=== PATIENT | male | born 1950 | race Caucasian/White ===

== ENCOUNTER → 2017-03-04 | Outpatient (REF) | payer MEDICARE ==
[~2017-03-04] MED LIST: /TAMS4CA; ABIL10TA; ABIL2TAB; ADDE10CA3; BENI20TA11; LAMI25TA; LEVO100T; LEVO25TA2; LEXA5TAB13; LEXAPRO; LIPI10TA; TRIC145T19
== END ==
LOC: M LAB REF 13:40
PROVIDERS: ATTEND Internal Medicine
DX: Z20.828 Contact with and (suspected) exposure to other viral communicable diseases (principal)

== ENCOUNTER → 2018-03-31 | Outpatient (REF) | payer MEDICARE ==
[2018-03-31 13:59] LABS: DRVV SCREEN 35.1 SEC
[2018-03-31 14:06] LABS: ERYTHROCYTE SEDIMENTATION RATE 3 mm/hr (0-20)
[2018-03-31 14:07] LABS: PTT LUPUS TYPE ANTICOAG SCREEN 0.8 (0-1.2)
[2018-03-31 14:18] LABS: ESTIMATED AVERAGE GLUCOSE 108 MG/DL (60-110); HEMOGLOBIN A1c 5.4 %
[2018-03-31 14:19] LABS: FREE T4 1.11 NG/DL (0.76-1.46); RHEUMATOID FACTOR QUANT < 10.0 IU/ML (<15.0); TOTAL PROTEIN 6.9 GM/DL (6.4-8.2)
[2018-04-01 11:23] LABS: ALBUMIN 4.28 GM/DL (3.29-5.55); ALPHA-1-GLOBULIN % 4.2 % (2.9-4.9); ALPHA-1-GLOBULINS 0.29 GM/DL (0.17-0.41); ALPHA-2-GLOBULINS 0.75 GM/DL (0.42-0.99); ALPHA-2-GLOBULINS % 10.8 % (7.1-11.8); BETA-1-GLOBULINS 0.44 GM/DL (0.28-0.60); BETA-1-GLOBULINS % 6.4 % (4.7-7.2); BETA-2-GLOBULINS 0.33 GM/DL (0.19-0.55); BETA-2-GLOBULINS % 4.8 % (3.2-6.5); GAMMA GLOBULIN % 11.8 % (11.1-18.8); GAMMA GLOBULINS 0.81 GM/DL (0.65-1.58)
== END ==
LOC: M LABNEURO 11:22
DX: G62.9 Polyneuropathy, unspecified (principal); G20 Parkinson's disease
CPT/HCPCS: 84165

== ENCOUNTER → 2019-01-20 | Outpatient (REF) | payer MEDICARE | LOC: M LAB REF 16:52 | PROVIDERS: ATTEND Physician Assistant | DX: J02.9 Acute pharyngitis, unspecified (principal) ==

== ENCOUNTER → 2019-06-17 | Outpatient (REF) | payer MEDICARE ==
[~2019-06-17] MED LIST changes: -/TAMS4CA; +FLOM0.4C39; +LEXA1TAB; -LEXAPRO
== END ==
LOC: M LAB REF 16:54
PROVIDERS: ATTEND Internal Medicine
DX: D64.9 Anemia, unspecified (principal)

== ENCOUNTER → 2021-09-13 | Outpatient (CLI) | payer MEDICARE ==
--- NOTE | 2021-09-13 13:57 | REP ---
INDICATION: CONTUSION. COMPARISON: None TECHNIQUE: AP and frog-lateral views FINDINGS: The hip joint space is symmetric and well maintained. There is no acute fracture, dislocation, or subluxation. The femoral head is spherical in shape. There is no evidence of buttressing. IMPRESSION: Within normal limits <Electronically signed by Massimo Melo > 09/13/21 [id number]
== END ==
LOC: M WUC 11:14
PROVIDERS: ATTEND Physician Assistant
DX: S70.02XA Contusion of left hip, initial encounter (principal); X58.XXXA Exposure to other specified factors, initial encounter; Y92.9 Unspecified place or not applicable; Y93.9 Activity, unspecified; Y99.9 Unspecified external cause status

== ENCOUNTER 2021-10-11 11:10 | Emergency (ER) | payer MEDICARE ==
[~2021-10-11] VITALS: Ht 180.3 cm; Wt 96.9 kg
[2021-10-11 11:11] VITALS: BP 153/83
--- OUTSIDE RECORDS SUMMARY | 2021-10-11 11:21 | CCD | Continuity of Care Document ---
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 Phone [place] V[facility] [phone] Problems Description No Information Available Social History Type Date Description Comments Sex Unknown ETOH Use Occasionally consumes alcohol Tobacco Use Start: Unknown Patient has never smoked Smoking Status Reviewed: 07/04/20 Patient has never smoked Allergies and adverse reactions Active Allergies Criticality Reaction | Severity Comments Date Shrimp Unable to assess criticality redness, swelling, anaphy laxis late 07/10/2012 Medications Active Medications SIG Qnty Indications Ordering Provide r Date Lipitor Unknown Tricor Unknown Levothyroxine Sodium Unknown Flomax Unknown Adderall Unknown Abilify Unknown Wellbutrin Unknown Ropinirole HCL 0.25mg Tablets Unknown Aripiprazole 5mg Tablets Take One Half Tablet By Mouth AT Bedtime Unknown Amphetamine-Dextroamphet ER 30mg Caps ER 24HR Take Two Capsules By Mouth Every Day Maximum Daily Dose 2 Caps ules Unknown Omeprazole Unknown Memantine HCL Unknown Trihexyphenidyl HCL Unknown Immunizations Description No Information Available Vital Signs Date Vital Result Comment 09/12/2021 5:17pm BP Systolic 149 mmHg BP Diastolic 83 mmHg Heart Rate 84 /min Respiratory Rate 15 /min O2 % BldC Oximetry 97 % Body Temperature 97.1 F Weight 187.00 lb Height 71 inches 5'11" BMI (Body Mass Index) 26.1 kg/m2 Pain Level 4 07/04/2020 10:31am BP Systolic 116 mmHg BP Diastolic 78 mmHg Heart Rate 88 /min O2 % BldC Oximetry 97 % Body Temperature 98.0 F Weight 195.00 lb Height 71 inches 5'11" BMI (Body Mass Index) 27.2 kg/m2 Pain Level 2 Results Description No Information Available Procedures Date Code Description Status 09/12/2021 14553 Office/Outpatient Established Lo w MDM 20-29 Min Completed Medical Devices Description No Information Available Encounters Type Date Location Provider Dx Diagnosis Office Visit 09/12/2021 12:10p Main Office EMILY Ernandez S70 .02xA Contusion of left hip, initial encounter Assessments Date Code Description Provider 09/12/2021 S70.02xA Contusion of left hip, initial e ncounter EMILY Ernandez Plan of Treatment No Information Available Functional Status Description No Information Available Mental Status Description No Information Available Referrals Description No Information Available
--- OUTSIDE RECORDS SUMMARY | 2021-10-11 11:21 | CCD ---
Author Author [facility] Organization [facility] Address Unknown Phone Unavailable Care Team Providers Care Plate Stacker Name Role Phone Rick Bolden Unavailable Unavailable Yuan, Azra ENCINAS Unavailable Unavailable Yuan, Azra ENCINAS Unavailable Unavailable Yuan, Azra ENCNIAS Unavailable Unavailable YuanRick Unavailable Unavailable Yuan, Azra ENCINAS Unavailable Unavailable Yuan, Azra ENCINAS Unavailable Unavailable Yuan, Azra ENCINAS Unavailable Unavailable Yuan, Azra ENCINAS Unavailable Unavailable Yuan, Azra ENCINAS Unavailable Unavailable YuanRick Unavailable Unavailable YuanRick Unavailable Unavailable YuanRick Unavailable Unavailable YuanRick Unavailable Unavailable YuanRick Unavailable Unavailable YuanRick Unavailable Unavailable YuanRick Unavailable Unavailable YuanRick Unavailable Unavailable YuanRick Unavailable Unavailable YuanRick Unavailable Unavailable YuanRick Unavailable Unavailable YuanRick Unavailable Unavailable Yuan, Azra ENCINAS Unavailable Unavailable Yuan, Azra MD Unavailable Unavailable Yuan, Azra MD Unavailable Unavailable Yuan, Azra MD Unavailable Unavailable Yuan, Azra MD Unavailable Unavailable Yuan, Azra MD Unavailable Unavailable Yuan, Azra ENCINAS Unavailable Unavailable Yuan, Azra ENCINAS Unavailable Unavailable Yuan, Azra ENCINAS Unavailable Unavailable Yuan, Azra ENCINAS Unavailable Unavailable Yuan, Azra ENCINAS Unavailable Unavailable Yuan, Azra MD Unavailable Unavailable Yuan, Azra MD Unavailable Unavailable Yuan, Azra MD Unavailable Unavailable Yuan, Azra MD Unavailable Unavailable Yuan, Azra MD Unavailable Unavailable Yuan, Azra MD Unavailable Unavailable Yuan, Azra MD Unavailable Unavailable Yuan, Azra MD Unavailable Unavailable Yuan, Azra MD Unavailable Unavailable Yuan, Azra MD Unavailable Unavailable Yuan, Azra MD Unavailable Unavailable Yuan, Azra MD Unavailable Unavailable Yuan, Azar MD Unavailable Unavailable Yuan, Azra MD Unavailable Unavailable Yuan, Azra MD Unavailable Unavailable Yuan, Azra MD Unavailable Unavailable Yuan, Azra MD Unavailable Unavailable Yuan, Azra MD Unavailable Unavailable Yuan, Azra MD Unavailable Unavailable Yuan, Azra MD Unavailable Unavailable Yuan, Azra MD Unavailable Unavailable Yuan, Azra MD Unavailable Unavailable Yuan, Azra MD Unavailable Unavailable Yuan, Azra MD Unavailable Unavailable Yuan, Azra MD Unavailable Unavailable Yuan, Azra MD Unavailable Unavailable Yuan, Azra MD Unavailable Unavailable Yuan, Azra MD Unavailable Unavailable Yuan, Azra MD Unavailable Unavailable LETTIERE, A NEENA PA Unavailable Unavailable LETTIERE, A NEENA PA Unavailable Unavailable LETTIERE, A NEENA PA Unavailable Unavailable LETTIERE, A NEENA PA Unavailable Unavailable LETTIERE, A NEENA PA Unavailable Unavailable LETTIERE, A NEENA PA Unavailable Unavailable LETTIERE, A NEENA PA Unavailable Unavailable LETTIERE, A NEENA PA Unavailable Unavailable LETTIERE, A NEENA PA Unavailable Unavailable LETTIERE, A NEENA PA Unavailable Unavailable LETTIERE, A NEENA PA Unavailable Unavailable LETTIERE, A NEENA PA Unavailable Unavailable LETTIERE, A NEENA PA Unavailable Unavailable LETTIERE, A NEENA PA Unavailable Unavailable LETTIERE, A NEENA PA Unavailable Unavailable LETTIERE, A NEENA PA Unavailable Unavailable LETTIERE, A NEENA PA Unavailable Unavailable LETTIERE, A NEENA PA Unavailable Unavailable LETTIERE, A NEENA PA Unavailable Unavailable LETTIERE, A NEENA PA Unavailable Unavailable LETTIERE, A NEENA PA Unavailable Unavailable LETTIERE, A NEENA PA Unavailable Unavailable LETTIERE, A NEENA PA Unavailable Unavailable LETTIERE, A NEENA PA Unavailable Unavailable LETTIERE, A NEENA PA Unavailable Unavailable LETTIERE, A NEENA PA Unavailable Unavailable LETTIERE, A NEENA PA Unavailable Unavailable LETTIERE, A NEENA PA Unavailable Unavailable LETTIERE, A NEENA PA Unavailable Unavailable LETTIERE, A NEENA PA Unavailable Unavailable LETTIERE, A NEENA PA Unavailable Unavailable Azeem, Katie DO Unavailable Unavailable Azeem, Katie DO Unavailable Unavailable Azeem, Katie DO Unavailable Unavailable Azeem, Katie DO Unavailable Unavailable Azeem, Katie DO Unavailable Unavailable Azeem, Katie DO Unavailable Unavailable Azeem, Katie DO Unavailable Unavailable Azeem, Katie DO Unavailable Unavailable Azeem, Katie DO Unavailable Unavailable Azeem, Katie DO Unavailable Unavailable Azeem, Katie DO Unavailable Unavailable Azeem, Katie DO Unavailable Unavailable Azeem, Katie DO Unavailable Unavailable Azeem, Katie DO Unavailable Unavailable Azeem, Katie DO Unavailable Unavailable Azeem, Katie DO Unavailable Unavailable Azeem, Katie DO Unavailable Unavailable Azeem, Katie DO Unavailable Unavailable Azeem, Katie DO Unavailable Unavailable Azeem, Katie DO Unavailable Unavailable Azeem, Katie DO Unavailable Unavailable Azeem, Katie DO Unavailable Unavailable Azeem, Katie DO Unavailable Unavailable Azeem, Katie DO Unavailable Unavailable Azeem, Katie DO Unavailable Unavailable Azeem, Katie DO Unavailable Unavailable Azeem, Katie DO Unavailable Unavailable Azeem, Katie DO Unavailable Unavailable Azeem, Katie DO Unavailable Unavailable Azeem, Katie DO Unavailable Unavailable Azeem, Katie DO Unavailable Unavailable Azeem, Katie DO Unavailable Unavailable Azeem, Katie DO Unavailable Unavailable Azeem, Katie DO Unavailable Unavailable Azeem, Katie DO Unavailable Unavailable Azeme, Katie DO Unavailable Unavailable Azeem, Katie DO Unavailable Unavailable Azeem, Katie DO Unavailable Unavailable Azeem, Katie DO Unavailable Unavailable Azeem, Kaite DO Unavailable Unavailable Azeem, Katie DO Unavailable Unavailable Azeem, Katie DO Unavailable Unavailable Azeem, Katie DO Unavailable Unavailable Azeem, Katie DO Unavailable Unavailable Azeem, Katie DO Unavailable Unavailable Azeem, Katie DO Unavailable Unavailable Azeem, Katie DO Unavailable Unavailable Azeem, Katie DO Unavailable Unavailable Azeem, Katie DO Unavailable Unavailable Azeem, Katie DO Unavailable Unavailable Azeem, Katie DO Unavailable Unavailable Azeem, Katie DO Unavailable Unavailable Azeem, Katie DO Unavailable Unavailable Azeem, Katie DO Unavailable Unavailable Azeem, Katie DO Unavailable Unavailable Azeem, Katie DO Unavailable Unavailable Azeem, Katie DO Unavailable Unavailable Azeem, Katie DO Unavailable Unavailable Azeem, Katie DO Unavailable Unavailable Azeem, Katie DO Unavailable Unavailable Azeem, Katie DO Unavailable Unavailable Azeem, Katie DO Unavailable Unavailable Azeem, Katie DO Unavailable Unavailable Azeem, Katie DO Unavailable Unavailable Azeem, Katie DO Unavailable Unavailable Azeem, Katie DO Unavailable Unavailable Azeem, Katie DO Unavailable Unavailable Azeem, Katie DO Unavailable Unavailable Azeem, Katie DO Unavailable Unavailable Azeem, Katie DO Unavailable Unavailable Azeem, Katie DO Unavailable Unavailable Azeem, Katie DO Unavailable Unavailable Azeem, Katie DO Unavailable Unavailable Azeem, Katie DO Unavailable Unavailable Re-disclosure Warning The records that you are about to access may contain information from federally-assisted alcohol or drug abuse programs. If such information is present, then the following federally mandated warning applies: This information has been disclosed to you from records protected by federal confidentiality rules (42 CFR part 2). The federal rules prohibit you from making any further disclosure of this information unless further disclosure is expressly permitted by the written consent of the person to whom it pertains or as otherwise permitted by 42 CFR part 2. A general authorization for the release of medical or other information is NOT sufficient for this purpose. The Federal rules restrict any use of the information to criminally investigate or prosecute any alcohol or drug abuse patient.The records that you are about to access may contain highly sensitive health information, the redisclosure of which is protected by Article 27-F of the [facility] Public Health law. If you continue you may have access to information: Regarding HIV / AIDS; Provided by facilities licensed or operated by the [facility] Office of Mental Health; or Provided by the [facility] Office for People With Developmental Disabilities. If such information is present, then the following [facility] mandated warning applies: This information has been disclosed to you from confidential records which are protected by state law. State law prohibits you from making any further disclosure of this information without the specific written consent of the person to whom it pertains, or as otherwise permitted by law. Any unauthorized further disclosure in violation of state law may result in a fine or senior care sentence or both. A general authorization for the release of medical or other information is NOT sufficient authorization for further disc losure. Family History Family Member Name Family Member Gender Family Member Status Date o f Status Description Data Source(s) Unknown Unknown Problem [facility] ([facility]) Encounters Encounter Providers Location Date Indications Data Source(s ) Outpatient Attender: NEENA solis 09/12/2021 12:10:00 PM EDT [facility] ([facility]) Outpatient [address] [address] 06/21/2021 12:00:00 AM EDT eCW1 ([facility]) Outpatient Attender: aKtie Parekh 10/24 07:00:00 AM EST [facility] ([facility] ) Outpatient Attender: Azra Bolden MD Main office - [place] 09/04/2020 10:15:00 AM EDT [facility] ([facility]) Immunizations Vaccine Date Status Description Data Source(s) COVID-19 VACC, MRNA(PFIZER)/PF 08/21/2021 12:00:00 AM EDT completed [facility] COVID-19 VACCINE Pfizer 08/21/2021 12:00:00 AM EDT completed [facility] Vaccine Series Complete: YESThis Data wa s Submitted to [facility] Via [employer]. COVID-19 VACCINE Pfizer 02/14/2021 12:00:00 AM EDT completed [facility] Vaccine Series Complete: YESThis Data wa s Submitted to [facility] Via [employer]. COVID-19 VACCINE Pfizer 01/24/2021 12:00:00 AM EST completed [facility] Vaccine Series Complete: NOThis Data was Submitted to [facility] Via [employer]. INFLUENZA VACCINE QUADRIVALENT 2019- (65 YR UP)/MF59 C.1/PF 08/25/2020 12:00:00 AM EDT completed [facility] Medications Medication Brand Name Start Date Product Form Dose Route Admi nistrative Instructions Pharmacy Instructions Status Indications Reaction Description Data Source(s) 50 mg 09/28/2021 12:00:00 AM EDT tablet 90 TAKE ONE TABLET BY MOUTH EVERY DAY TAKE ONE TABLET BY MOUTH EVERY DAY SOLD: 10/02/2021 [facility] 240 mcg/0.7 mL 09/07/2021 12:00:00 AM EDT syringe 0 DIRECTED DIRECTED SOLD: 09/07/2021 [facility] atorvastatin 20 MG Oral Tablet ATORVASTATIN CALCIUM 08/27/2021 1 2:00:00 AM EDT tablet 30 TAKE ONE TABLET BY MOUTH EVERY D AY TAKE ONE TABLET BY MOUTH EVERY DAY SOLD: 08/30/2021 [facility] atorvastatin 20 MG Oral Tablet ATORVASTATIN CALCIUM 08/27/2021 1 2:00:00 AM EDT tablet 30 TAKE ONE TABLET BY MOUTH EVERY D AY TAKE ONE TABLET BY MOUTH EVERY DAY SOLD: 10/02/2021 [facility] 24 HR Bupropion Hydrochloride 300 MG Extended Release Oral T ablet BUPROPION HCL 08/03/2021 12:00:00 AM EDT tablet extended release 24 hr 30 TAKE ONE TABLET BY MOUTH EVERY MORNING TAKE ONE TABLET BY MOUTH EVERY MORNING SOLD: 09/05/2021 [facility] 24 HR Amphetamine aspartate 7.5 MG / Amp hetamine Sulfate 7.5 MG / Dextroamphetamine saccharate 7.5 MG / Dextroamphetamine Sulfate 7.5 MG Extended Release Oral Capsule 30 mg DEXTROAMPHETAMINE/AMPHETAMINE 08/03/2021 12:00:00 AM EDT capsule,extended release 24hr 30 TA KE TWO CAPSULES BY MOUTH EVERY DAY DIRECTED MAXIMUM DAILY DOSE = 2 CAPSULES TAKE TWO CAPSULES BY MOUTH EVERY DAY DIRECTED MAXIMUM DAILY DOSE = 2 CAPSULES SOLD: 08/03/2021 [facility] Escitalopram 10 MG Oral Tablet ESCITALOPRAM OXALATE 08/03/2021 1 2:00:00 AM EDT tablet 30 TAKE ONE TABLET BY MOUTH EVERY D AY TAKE ONE TABLET BY MOUTH EVERY DAY SOLD: 09/17/2021 [facility] 5 mg 08/03/2021 12:00:00 AM EDT tablet 15 TAKE ONE-HALF TABLET BY MOUTH AT BEDTIME TAKE ONE-HALF TABLET BY MOUTH AT BEDTIME SOLD: 08/03/2021 [facility] 24 HR Bupropion Hydrochloride 300 MG Extended Release Oral T ablet BUPROPION HCL 08/03/2021 12:00:00 AM EDT tablet extended release 24 hr 30 TAKE ONE TABLET BY MOUTH EVERY MORNING TAKE ONE TABLET BY MOUTH EVERY MORNING SOLD: 08/03/2021 [facility] Escitalopram 10 MG Oral Tablet ESCITALOPRAM OXALATE 08/03/2021 1 2:00:00 AM EDT tablet 30 TAKE ONE TABLET BY MOUTH EVERY D AY TAKE ONE TABLET BY MOUTH EVERY DAY SOLD: 08/03/2021 [facility] 5 mg 08/03/2021 12:00:00 AM EDT tablet 15 TAKE ONE-HALF TABLET BY MOUTH AT BEDTIME TAKE ONE-HALF TABLET BY MOUTH AT BEDTIME SOLD: 09/05/2021 [facility] 150 mcg 07/28/2021 12:00:00 AM EDT tablet 30 TAKE ONE TABLET BY MOUTH EVERY DAY TAKE ONE TABLET BY MOUTH EVERY DAY SOLD: 10/02/2021 [facility] 150 mcg 07/28/2021 12:00:00 AM EDT tablet 30 TAKE ONE TABLET BY MOUTH EVERY DAY TAKE ONE TABLET BY MOUTH EVERY DAY SOLD: 08/30/2021 [facility] 150 mcg 07/28/2021 12:00:00 AM EDT tablet 30 TAKE ONE TABLET BY MOUTH EVERY DAY TAKE ONE TABLET BY MOUTH EVERY DAY SOLD: 07/31/2021 [facility] 28 mg 06/30/2021 12:00:00 AM EDT capsule,sprinkle,ER 24h r 30 TAKE ONE CAPSULE BY MOUTH EVERY DAY TAKE ONE CAPSULE BY MOUTH EVERY DAY SOLD: 07/31/2021 [facility] 28 mg 06/30/2021 12:00:00 AM EDT capsule,sprinkle,ER 24h r 30 TAKE ONE CAPSULE BY MOUTH EVERY DAY TAKE ONE CAPSULE BY MOUTH EVERY DAY SOLD: 07/02/2021 [facility] 28 mg 06/30/2021 12:00:00 AM EDT capsule,sprinkle,ER 24h r 30 TAKE ONE CAPSULE BY MOUTH EVERY DAY TAKE ONE CAPSULE BY MOUTH EVERY DAY SOLD: 10/02/2021 [facility] 28 mg 06/30/2021 12:00:00 AM EDT capsule,sprinkle,ER 24h r 30 TAKE ONE CAPSULE BY MOUTH EVERY DAY TAKE ONE CAPSULE BY MOUTH EVERY DAY SOLD: 08/30/2021 [facility] 0.4 mg 06/23/2021 12:00:00 AM EDT capsule 30 TAKE ONE CAPSULE BY MOUTH EVERY DAY TAKE ONE CAPSULE BY MOUTH EVERY DAY SOLD: 08/30/2021 [facility] 0.4 mg 06/23/2021 12:00:00 AM EDT capsule 30 TAKE ONE CAPSULE BY MOUTH EVERY DAY TAKE ONE CAPSULE BY MOUTH EVERY DAY SOLD: 07/31/2021 [facility] 0.4 mg 06/23/2021 12:00:00 AM EDT capsule 30 TAKE ONE CAPSULE BY MOUTH EVERY DAY TAKE ONE CAPSULE BY MOUTH EVERY DAY SOLD: 10/02/2021 [facility] 0.4 mg 06/23/2021 12:00:00 AM EDT capsule 30 TAKE ONE CAPSULE BY MOUTH EVERY DAY TAKE ONE CAPSULE BY MOUTH EVERY DAY SOLD: 06/28/2021 [facility] 24 HR Amphetamine aspartate 7.5 MG / Amp hetamine Sulfate 7.5 MG / Dextroamphetamine saccharate 7.5 MG / Dextroamphetamine Sulfate 7.5 MG Extended Release Oral Capsule 30 mg DEXTROAMPHETAMINE/AMPHETAMINE 06/05/2021 12:00:00 AM EDT capsule,extended release 24hr 30 TA KE TWO CAPSULES BY MOUTH EVERY DAY DIRECTED MAXIMUM DAILY DOSE = 2 CAPSULES TAKE TWO CAPSULES BY MOUTH EVERY DAY DIRECTED MAXIMUM DAILY DOSE = 2 CAPSULES SOLD: 06/07/2021 [facility] Escitalopram 10 MG Oral Tablet ESCITALOPRAM OXALATE 05/20/2021 1 2:00:00 AM EDT tablet 30 TAKE ONE TABLET BY MOUTH EVERY D AY TAKE ONE TABLET BY MOUTH EVERY DAY SOLD: 05/20/2021 [facility] Escitalopram 10 MG Oral Tablet ESCITALOPRAM OXALATE 05/20/2021 1 2:00:00 AM EDT tablet 30 TAKE ONE TABLET BY MOUTH EVERY D AY TAKE ONE TABLET BY MOUTH EVERY DAY SOLD: 07/11/2021 [facility] Escitalopram 10 MG Oral Tablet ESCITALOPRAM OXALATE 05/20/2021 1 2:00:00 AM EDT tablet 30 TAKE ONE TABLET BY MOUTH EVERY D AY TAKE ONE TABLET BY MOUTH EVERY DAY SOLD: 08/25/2021 [facility] 20 mg 05/05/2021 12:00:00 AM EDT capsule,delayed release (DR/EC) 30 TAKE ONE CAPSULE BY MOUTH EVERY OTHER DAY TO ONCE DAILY TAKE ONE CAPSULE BY MOUTH EVERY OTHER DAY TO ONCE DAILY SOLD: 05/07/2021 [facility] 20 mg 05/05/2021 12:00:00 AM EDT capsule,delayed release (DR/EC) 30 TAKE ONE CAPSULE BY MOUTH EVERY OTHER DAY TO ONCE DAILY TAKE ONE CAPSULE BY MOUTH EVERY OTHER DAY TO ONCE DAILY SOLD: 07/31/2021 [facility] 20 mg 05/05/2021 12:00:00 AM EDT capsule,delayed release (DR/EC) 30 TAKE ONE CAPSULE BY MOUTH EVERY OTHER DAY TO ONCE DAILY TAKE ONE CAPSULE BY MOUTH EVERY OTHER DAY TO ONCE DAILY SOLD: 06/03/2021 [facility] 20 mg 05/05/2021 12:00:00 AM EDT capsule,delayed release (DR/EC) 30 TAKE ONE CAPSULE BY MOUTH EVERY OTHER DAY TO ONCE DAILY TAKE ONE CAPSULE BY MOUTH EVERY OTHER DAY TO ONCE DAILY SOLD: 08/30/2021 [facility] 20 mg 05/05/2021 12:00:00 AM EDT capsule,delayed release (DR/EC) 30 TAKE ONE CAPSULE BY MOUTH EVERY OTHER DAY TO ONCE DAILY TAKE ONE CAPSULE BY MOUTH EVERY OTHER DAY TO ONCE DAILY SOLD: 10/02/2021 [facility] 20 mg 05/05/2021 12:00:00 AM EDT capsule,delayed release (DR/EC) 30 TAKE ONE CAPSULE BY MOUTH EVERY OTHER DAY TO ONCE DAILY TAKE ONE CAPSULE BY MOUTH EVERY OTHER DAY TO ONCE DAILY SOLD: 07/02/2021 [facility] 24 HR Bupropion Hydrochloride 300 MG Extended Release Oral T ablet BUPROPION HCL 04/28/2021 12:00:00 AM EDT tablet extended release 24 hr 30 TAKE ONE TABLET BY MOUTH EVERY MORNING TAKE ONE TABLET BY MOUTH EVERY MORNING SOLD: 05/26/2021 [facility] Escitalopram 10 MG Oral Tablet ESCITALOPRAM OXALATE 04/28/2021 1 2:00:00 AM EDT tablet 30 TAKE ONE TABLET BY MOUTH EVERY D AY TAKE ONE TABLET BY MOUTH EVERY DAY SOLD: 06/28/2021 [facility] Escitalopram 10 MG Oral Tablet ESCITALOPRAM OXALATE 04/28/2021 1 2:00:00 AM EDT tablet 30 TAKE ONE TABLET BY MOUTH EVERY D AY TAKE ONE TABLET BY MOUTH EVERY DAY SOLD: 04/28/2021 [facility] 5 mg 04/28/2021 12:00:00 AM EDT tablet 15 TAKE 1/2 TABLET BY MOUTH AT BEDTIME TAKE 1/2 TABLET BY MOUTH AT BEDTIME SOLD: 05/26/2021 [facility] 24 HR Amphetamine aspartate 7.5 MG / Amp hetamine Sulfate 7.5 MG / Dextroamphetamine saccharate 7.5 MG / Dextroamphetamine Sulfate 7.5 MG Extended Release Oral Capsule 30 mg DEXTROAMPHETAMINE/AMPHETAMINE 04/28/2021 12:00:00 AM EDT capsule,extended release 24hr 60 TA KE TWO CAPSULES BY MOUTH EVERY DAY MAXIMUM DAILY DOSE = 2 CAPSULES TAKE TWO CAPSULES BY MOUTH EVERY DAY MAX IMUM DAILY DOSE = 2 CAPSULES SOLD: 04/28/2021 [facility] 5 mg 04/28/2021 12:00:00 AM EDT tablet 15 TAKE 1/2 TABLET BY MOUTH AT BEDTIME TAKE 1/2 TABLET BY MOUTH AT BEDTIME SOLD: 04/28/2021 [facility] 24 HR Bupropion Hydrochloride 300 MG Extended Release Oral T ablet BUPROPION HCL 04/28/2021 12:00:00 AM EDT tablet extended release 24 hr 30 TAKE ONE TABLET BY MOUTH EVERY MORNING TAKE ONE TABLET BY MOUTH EVERY MORNING SOLD: 04/28/2021 [facility] 24 HR Amphetamine aspartate 7.5 MG / Amp hetamine Sulfate 7.5 MG / Dextroamphetamine saccharate 7.5 MG / Dextroamphetamine Sulfate 7.5 MG Extended Release Oral Capsule 30 mg DEXTROAMPHETAMINE/AMPHETAMINE 03/29/2021 12:00:00 AM EDT capsule,extended release 24hr 60 TA KE TWO CAPSULES BY MOUTH EVERY DAY MAXIMUM DAILY DOSE = 2 CAPSULES TAKE TWO CAPSULES BY MOUTH EVERY DAY MAX IMUM DAILY DOSE = 2 CAPSULES SOLD: 03/29/2021 [facility] 150 mcg 03/29/2021 12:00:00 AM EDT tablet 30 TAKE ONE TABLET BY MOUTH EVERY DAY TAKE ONE TABLET BY MOUTH EVERY DAY SOLD: 07/02/2021 [facility] 150 mcg 03/29/2021 12:00:00 AM EDT tablet 30 TAKE ONE TABLET BY MOUTH EVERY DAY TAKE ONE TABLET BY MOUTH EVERY DAY SOLD: 04/09/2021 [facility] 150 mcg 03/29/2021 12:00:00 AM EDT tablet 30 TAKE ONE TABLET BY MOUTH EVERY DAY TAKE ONE TABLET BY MOUTH EVERY DAY SOLD: 05/07/2021 [facility] 150 mcg 03/29/2021 12:00:00 AM EDT tablet 30 TAKE ONE TABLET BY MOUTH EVERY DAY TAKE ONE TABLET BY MOUTH EVERY DAY SOLD: 06/03/2021 [facility] 30 mg 02/21/2021 12:00:00 AM EDT capsule,extended releas e 24hr 60 TAKE TWO CAPSULES BY MOUTH EVERY DAY MAXIMUM DAILY DOSE = 2 TAKE TWO CAPSULES BY MOUTH EVERY DAY MAXIMUM DAILY DOSE = 2 SOLD: 02/24/2021 [facility] atorvastatin 20 MG Oral Tablet ATORVASTATIN CALCIUM 02/05/2021 1 2:00:00 AM EDT tablet 30 TAKE ONE TABLET BY MOUTH EVERY D AY TAKE ONE TABLET BY MOUTH EVERY DAY SOLD: 07/02/2021 [facility] atorvastatin 20 MG Oral Tablet ATORVASTATIN CALCIUM 02/05/2021 1 2:00:00 AM EDT tablet 30 TAKE ONE TABLET BY MOUTH EVERY D AY TAKE ONE TABLET BY MOUTH EVERY DAY SOLD: 03/13/2021 [facility] atorvastatin 20 MG Oral Tablet ATORVASTATIN CALCIUM 02/05/2021 1 2:00:00 AM EDT tablet 30 TAKE ONE TABLET BY MOUTH EVERY D AY TAKE ONE TABLET BY MOUTH EVERY DAY SOLD: 06/03/2021 [facility] atorvastatin 20 MG Oral Tablet ATORVASTATIN CALCIUM 02/05/2021 1 2:00:00 AM EDT tablet 30 TAKE ONE TABLET BY MOUTH EVERY D AY TAKE ONE TABLET BY MOUTH EVERY DAY SOLD: 02/09/2021 [facility] atorvastatin 20 MG Oral Tablet ATORVASTATIN CALCIUM 02/05/2021 1 2:00:00 AM EDT tablet 30 TAKE ONE TABLET BY MOUTH EVERY D AY TAKE ONE TABLET BY MOUTH EVERY DAY SOLD: 05/07/2021 [facility] atorvastatin 20 MG Oral Tablet ATORVASTATIN CALCIUM 02/05/2021 1 2:00:00 AM EDT tablet 30 TAKE ONE TABLET BY MOUTH EVERY D AY TAKE ONE TABLET BY MOUTH EVERY DAY SOLD: 07/31/2021 [facility] atorvastatin 20 MG Oral Tablet ATORVASTATIN CALCIUM 02/05/2021 1 2:00:00 AM EDT tablet 30 TAKE ONE TABLET BY MOUTH EVERY D AY TAKE ONE TABLET BY MOUTH EVERY DAY SOLD: 04/09/2021 [facility] 24 HR Bupropion Hydrochloride 300 MG Extended Release Oral T ablet BUPROPION HCL 01/27/2021 12:00:00 AM EST tablet extended release 24 hr 30 TAKE ONE TABLET BY MOUTH EVERY MORNING TAKE ONE TABLET BY MOUTH EVERY MORNING SOLD: 03/04/2021 [facility] 5 mg 01/27/2021 12:00:00 AM EST tablet 15 TAKE 1/2 TABLET BY MOUTH AT BEDTIME TAKE 1/2 TABLET BY MOUTH AT BEDTIME SOLD: 03/04/2021 [facility] 24 HR Bupropion Hydrochloride 300 MG Extended Release Oral T ablet BUPROPION HCL 01/27/2021 12:00:00 AM EST tablet extended release 24 hr 30 TAKE ONE TABLET BY MOUTH EVERY MORNING TAKE ONE TABLET BY MOUTH EVERY MORNING SOLD: 01/27/2021 [facility] Escitalopram 10 MG Oral Tablet ESCITALOPRAM OXALATE 01/27/2021 1 2:00:00 AM EST tablet 30 TAKE ONE TABLET BY MOUTH EVERY D AY TAKE ONE TABLET BY MOUTH EVERY DAY SOLD: 01/27/2021 [facility] Escitalopram 10 MG Oral Tablet ESCITALOPRAM OXALATE 01/27/2021 1 2:00:00 AM EST tablet 30 TAKE ONE TABLET BY MOUTH EVERY D AY TAKE ONE TABLET BY MOUTH EVERY DAY SOLD: 03/13/2021 [facility] 30 mg 01/27/2021 12:00:00 AM EST capsule,extended releas e 24hr 60 TAKE TWO CAPSULES BY MOUTH EVERY DAY MAXIMUM DAILY DOSE = 2 TAKE TWO CAPSULES BY MOUTH EVERY DAY MAXIMUM DAILY DOSE = 2 SOLD: 01/27/2021 [facility] 5 mg 01/27/2021 12:00:00 AM EST tablet 15 TAKE 1/2 TABLET BY MOUTH AT BEDTIME TAKE 1/2 TABLET BY MOUTH AT BEDTIME SOLD: 01/27/2021 [facility] 30 mg 12/21/2020 12:00:00 AM EST capsule,extended releas e 24hr 60 TAKE TWO CAPSULES BY MOUTH EVERY DAY MAXIMUM DAILY DOSE = 2 TAKE TWO CAPSULES BY MOUTH EVERY DAY MAXIMUM DAILY DOSE = 2 SOLD: 12/21/2020 [facility] 0.4 mg 12/18/2020 12:00:00 AM EST capsule 30 TAKE ONE CAPSULE BY MOUTH EVERY DAY TAKE ONE CAPSULE BY MOUTH EVERY DAY SOLD: 01/20/2021 [facility] 0.4 mg 12/18/2020 12:00:00 AM EST capsule 30 TAKE ONE CAPSULE BY MOUTH EVERY DAY TAKE ONE CAPSULE BY MOUTH EVERY DAY SOLD: 04/28/2021 [facility] 0.4 mg 12/18/2020 12:00:00 AM EST capsule 30 TAKE ONE CAPSULE BY MOUTH EVERY DAY TAKE ONE CAPSULE BY MOUTH EVERY DAY SOLD: 12/19/2020 [facility] 0.4 mg 12/18/2020 12:00:00 AM EST capsule 30 TAKE ONE CAPSULE BY MOUTH EVERY DAY TAKE ONE CAPSULE BY MOUTH EVERY DAY SOLD: 03/25/2021 [facility] 0.4 mg 12/18/2020 12:00:00 AM EST capsule 30 TAKE ONE CAPSULE BY MOUTH EVERY DAY TAKE ONE CAPSULE BY MOUTH EVERY DAY SOLD: 05/26/2021 [facility] 0.4 mg 12/18/2020 12:00:00 AM EST capsule 30 TAKE ONE CAPSULE BY MOUTH EVERY DAY TAKE ONE CAPSULE BY MOUTH EVERY DAY SOLD: 02/19/2021 [facility] 150 mcg 11/27/2020 12:00:00 AM EST tablet 30 TAKE ONE TABLET BY MOUTH EVERY DAY TAKE ONE TABLET BY MOUTH EVERY DAY SOLD: 12/30/2020 [facility] 150 mcg 11/27/2020 12:00:00 AM EST tablet 30 TAKE ONE TABLET BY MOUTH EVERY DAY TAKE ONE TABLET BY MOUTH EVERY DAY SOLD: 12/01/2020 [facility] 150 mcg 11/27/2020 12:00:00 AM EST tablet 30 TAKE ONE TABLET BY MOUTH EVERY DAY TAKE ONE TABLET BY MOUTH EVERY DAY SOLD: 03/04/2021 [facility] 150 mcg 11/27/2020 12:00:00 AM EST tablet 30 TAKE ONE TABLET BY MOUTH EVERY DAY TAKE ONE TABLET BY MOUTH EVERY DAY SOLD: 01/27/2021 [facility] 24 HR Bupropion Hydrochloride 300 MG Extended Release Oral T ablet BUPROPION HCL 11/21/2020 12:00:00 AM EST tablet extended release 24 hr 30 TAKE ONE TABLET BY MOUTH EVERY MORNING TAKE ONE TABLET BY MOUTH EVERY MORNING SOLD: 11/21/2020 [facility] 24 HR Bupropion Hydrochloride 300 MG Extended Release Oral T ablet BUPROPION HCL 11/21/2020 12:00:00 AM EST tablet extended release 24 hr 30 TAKE ONE TABLET BY MOUTH EVERY MORNING TAKE ONE TABLET BY MOUTH EVERY MORNING SOLD: 12/19/2020 [facility] 30 mg 11/21/2020 12:00:00 AM EST capsule,extended releas e 24hr 60 TAKE TWO CAPSULES BY MOUTH EVERY DAY MAXIMUM DAILY DOSE = TWO TABLETS TAKE TWO CAPSULES BY MOUTH EVERY DAY MAXIMUM DAILY DOSE = TWO TABLETS SOLD: 11/21/2020 [facility] 5 mg 11/16/2020 12:00:00 AM EST tablet 15 TAKE 1/2 TABLET BY MOUTH AT BEDTIME TAKE 1/2 TABLET BY MOUTH AT BEDTIME SOLD: 12/17/2020 [facility] 5 mg 11/16/2020 12:00:00 AM EST tablet 15 TAKE 1/2 TABLET BY MOUTH AT BEDTIME TAKE 1/2 TABLET BY MOUTH AT BEDTIME SOLD: 11/19/2020 [facility] Escitalopram 10 MG Oral Tablet ESCITALOPRAM OXALATE 11/06/2020 1 2:00:00 AM EST tablet 30 TAKE ONE TABLET BY MOUTH EVERY D AY TAKE ONE TABLET BY MOUTH EVERY DAY SOLD: 01/07/2021 [facility] Escitalopram 10 MG Oral Tablet ESCITALOPRAM OXALATE 11/06/2020 1 2:00:00 AM EST tablet 30 TAKE ONE TABLET BY MOUTH EVERY D AY TAKE ONE TABLET BY MOUTH EVERY DAY SOLD: 11/13/2020 [facility] Escitalopram 10 MG Oral Tablet ESCITALOPRAM OXALATE 11/06/2020 1 2:00:00 AM EST tablet 30 TAKE ONE TABLET BY MOUTH EVERY D AY TAKE ONE TABLET BY MOUTH EVERY DAY SOLD: 02/19/2021 [facility] Escitalopram 10 MG Oral Tablet ESCITALOPRAM OXALATE 11/06/2020 1 2:00:00 AM EST tablet 30 TAKE ONE TABLET BY MOUTH EVERY D AY TAKE ONE TABLET BY MOUTH EVERY DAY SOLD: 04/09/2021 [facility] Escitalopram 10 MG Oral Tablet ESCITALOPRAM OXALATE 11/06/2020 1 2:00:00 AM EST tablet 30 TAKE ONE TABLET BY MOUTH EVERY D AY TAKE ONE TABLET BY MOUTH EVERY DAY SOLD: 12/09/2020 [facility] 30 mg 10/12/2020 12:00:00 AM EST capsule,extended releas e 24hr 60 TAKE TWO CAPSULES BY MOUTH EVERY DAY MAXIMUM DAILY DOSE = TWO TABLETS TAKE TWO CAPSULES BY MOUTH EVERY DAY MAXIMUM DAILY DOSE = TWO TABLETS SOLD: 10/13/2020 [facility] 50 mg 09/26/2020 12:00:00 AM EST tablet 90 TAKE ONE TABLET BY MOUTH EVERY DAY TAKE ONE TABLET BY MOUTH EVERY DAY SOLD: 12/27/2020 [facility] 50 mg 09/26/2020 12:00:00 AM EST tablet 90 TAKE ONE TABLET BY MOUTH EVERY DAY TAKE ONE TABLET BY MOUTH EVERY DAY SOLD: 03/25/2021 [facility] 50 mg 09/26/2020 12:00:00 AM EST tablet 90 TAKE ONE TABLET BY MOUTH EVERY DAY TAKE ONE TABLET BY MOUTH EVERY DAY SOLD: 06/28/2021 [facility] 50 mg 09/26/2020 12:00:00 AM EST tablet 90 TAKE ONE TABLET BY MOUTH EVERY DAY TAKE ONE TABLET BY MOUTH EVERY DAY SOLD: 09/28/2020 [facility] 30 mg 09/12/2020 12:00:00 AM EDT capsule,extended releas e 24hr 60 TAKE TWO CAPSULES BY MOUTH EVERY DAY DIRECTED MAXIMUM DAILY DOSE = 2 CAPSULES TAKE TWO CAPSULES BY MOUTH EVERY DAY DIRECTED MAXIMUM DAILY DOSE = 2 CAPSULES SOLD: 09/12/2020 [facility] 24 HR Bupropion Hydrochloride 300 MG Extended Release Oral T ablet BUPROPION HCL 09/12/2020 12:00:00 AM EDT tablet extended release 24 hr 30 TAKE ONE TABLET BY MOUTH EVERY MORNING TAKE ONE TABLET BY MOUTH EVERY MORNING SOLD: 10/12/2020 [facility] 24 HR Bupropion Hydrochloride 300 MG Extended Release Oral T ablet BUPROPION HCL 09/12/2020 12:00:00 AM EDT tablet extended release 24 hr 30 TAKE ONE TABLET BY MOUTH EVERY MORNING TAKE ONE TABLET BY MOUTH EVERY MORNING SOLD: 09/12/2020 [facility] 2 mg 09/04/2020 12:00:00 AM EDT tablet 90 TAKE ONE TABLET BY MOUTH THREE TIMES A DAY TAKE ONE TABLET BY MOUTH THREE TIMES A DAY SOLD: 12/08/2020 [facility] 28 mg 09/04/2020 12:00:00 AM EDT capsule,sprinkle,ER 24h r 30 TAKE ONE CAPSULE BY MOUTH EVERY DAY TAKE ONE CAPSULE BY MOUTH EVERY DAY SOLD: 02/09/2021 [facility] 28 mg 09/04/2020 12:00:00 AM EDT capsule,sprinkle,ER 24h r 30 TAKE ONE CAPSULE BY MOUTH EVERY DAY TAKE ONE CAPSULE BY MOUTH EVERY DAY SOLD: 11/06/2020 [facility] 1 mg 09/04/2020 12:00:00 AM EDT tablet 120 TAKE ONE TABLET BY MOUTH FOUR TIMES A DAY TAKE ONE TABLET BY MOUTH FOUR TIMES A DAY SOLD: 12/08/2020 [facility] 2 mg 09/04/2020 12:00:00 AM EDT tablet 90 TAKE ONE TABLET BY MOUTH THREE TIMES A DAY TAKE ONE TABLET BY MOUTH THREE TIMES A DAY SOLD: 10/07/2020 [facility] 1 mg 09/04/2020 12:00:00 AM EDT tablet 120 TAKE ONE TABLET BY MOUTH FOUR TIMES A DAY TAKE ONE TABLET BY MOUTH FOUR TIMES A DAY SOLD: 09/06/2020 [facility] 2 mg 09/04/2020 12:00:00 AM EDT tablet 90 TAKE ONE TABLET BY MOUTH THREE TIMES A DAY TAKE ONE TABLET BY MOUTH THREE TIMES A DAY SOLD: 01/07/2021 [facility] 2 mg 09/04/2020 12:00:00 AM EDT tablet 90 TAKE ONE TABLET BY MOUTH THREE TIMES A DAY TAKE ONE TABLET BY MOUTH THREE TIMES A DAY SOLD: 11/06/2020 [facility] 1 mg 09/04/2020 12:00:00 AM EDT tablet 120 TAKE ONE TABLET BY MOUTH FOUR TIMES A DAY TAKE ONE TABLET BY MOUTH FOUR TIMES A DAY SOLD: 01/07/2021 [facility] 1 mg 09/04/2020 12:00:00 AM EDT tablet 120 TAKE ONE TABLET BY MOUTH FOUR TIMES A DAY TAKE ONE TABLET BY MOUTH FOUR TIMES A DAY SOLD: 10/07/2020 [facility] 2 mg 09/04/2020 12:00:00 AM EDT tablet 90 TAKE ONE TABLET BY MOUTH THREE TIMES A DAY TAKE ONE TABLET BY MOUTH THREE TIMES A DAY SOLD: 02/09/2021 [facility] 1 mg 09/04/2020 12:00:00 AM EDT tablet 120 TAKE ONE TABLET BY MOUTH FOUR TIMES A DAY TAKE ONE TABLET BY MOUTH FOUR TIMES A DAY SOLD: 11/06/2020 [facility] 28 mg 09/04/2020 12:00:00 AM EDT capsule,sprinkle,ER 24h r 30 TAKE ONE CAPSULE BY MOUTH EVERY DAY TAKE ONE CAPSULE BY MOUTH EVERY DAY SOLD: 12/08/2020 [facility] 28 mg 09/04/2020 12:00:00 AM EDT capsule,sprinkle,ER 24h r 30 TAKE ONE CAPSULE BY MOUTH EVERY DAY TAKE ONE CAPSULE BY MOUTH EVERY DAY SOLD: 09/06/2020 [facility] 1 mg 09/04/2020 12:00:00 AM EDT tablet 120 TAKE ONE TABLET BY MOUTH FOUR TIMES A DAY TAKE ONE TABLET BY MOUTH FOUR TIMES A DAY SOLD: 02/09/2021 [facility] 28 mg 09/04/2020 12:00:00 AM EDT capsule,sprinkle,ER 24h r 30 TAKE ONE CAPSULE BY MOUTH EVERY DAY TAKE ONE CAPSULE BY MOUTH EVERY DAY SOLD: 10/07/2020 [facility] 2 mg 09/04/2020 12:00:00 AM EDT tablet 90 TAKE ONE TABLET BY MOUTH THREE TIMES A DAY TAKE ONE TABLET BY MOUTH THREE TIMES A DAY SOLD: 09/06/2020 [facility] 28 mg 09/04/2020 12:00:00 AM EDT capsule,sprinkle,ER 24h r 30 TAKE ONE CAPSULE BY MOUTH EVERY DAY TAKE ONE CAPSULE BY MOUTH EVERY DAY SOLD: 01/07/2021 [facility] 5 mg 09/01/2020 12:00:00 AM EDT tablet 15 TAKE ONE-HALF TABLET BY MOUTH AT BEDTIME TAKE ONE-HALF TABLET BY MOUTH AT BEDTIME SOLD: 09/02/2020 [facility] 5 mg 09/01/2020 12:00:00 AM EDT tablet 15 TAKE ONE-HALF TABLET BY MOUTH AT BEDTIME TAKE ONE-HALF TABLET BY MOUTH AT BEDTIME SOLD: 10/02/2020 [facility] 30 mg 08/14/2020 12:00:00 AM EDT capsule,extended releas e 24hr 60 TAKE TWO CAPSULES BY MOUTH EVERY DAY DIRECTED MAXIMUM DAILY DOSE = 2 CAPSULES TAKE TWO CAPSULES BY MOUTH EVERY DAY DIRECTED MAXIMUM DAILY DOSE = 2 CAPSULES SOLD: 08/14/2020 [facility] 20 mg 08/10/2020 12:00:00 AM EDT capsule,delayed release (DR/EC) 30 TAKE ONE CAPSULE BY MOUTH EVERY OTHER DAY TO ONCE DAILY TAKE ONE CAPSULE BY MOUTH EVERY OTHER DAY TO ONCE DAILY SOLD: 02/16/2021 [facility] 20 mg 08/10/2020 12:00:00 AM EDT capsule,delayed release (DR/EC) 30 TAKE ONE CAPSULE BY MOUTH EVERY OTHER DAY TO ONCE DAILY TAKE ONE CAPSULE BY MOUTH EVERY OTHER DAY TO ONCE DAILY SOLD: 03/18/2021 [facility] 20 mg 08/10/2020 12:00:00 AM EDT capsule,delayed release (DR/EC) 30 TAKE ONE CAPSULE BY MOUTH EVERY OTHER DAY TO ONCE DAILY TAKE ONE CAPSULE BY MOUTH EVERY OTHER DAY TO ONCE DAILY SOLD: 09/11/2020 [facility] 20 mg 08/10/2020 12:00:00 AM EDT capsule,delayed release (DR/EC) 30 TAKE ONE CAPSULE BY MOUTH EVERY OTHER DAY TO ONCE DAILY TAKE ONE CAPSULE BY MOUTH EVERY OTHER DAY TO ONCE DAILY SOLD: 04/15/2021 [facility] 20 mg 08/10/2020 12:00:00 AM EDT capsule,delayed release (DR/EC) 30 TAKE ONE CAPSULE BY MOUTH EVERY OTHER DAY TO ONCE DAILY TAKE ONE CAPSULE BY MOUTH EVERY OTHER DAY TO ONCE DAILY SOLD: 10/09/2020 [facility] 20 mg 08/10/2020 12:00:00 AM EDT capsule,delayed release (DR/EC) 30 TAKE ONE CAPSULE BY MOUTH EVERY OTHER DAY TO ONCE DAILY TAKE ONE CAPSULE BY MOUTH EVERY OTHER DAY TO ONCE DAILY SOLD: 12/15/2020 [facility] 20 mg 08/10/2020 12:00:00 AM EDT capsule,delayed release (DR/EC) 30 TAKE ONE CAPSULE BY MOUTH EVERY OTHER DAY TO ONCE DAILY TAKE ONE CAPSULE BY MOUTH EVERY OTHER DAY TO ONCE DAILY SOLD: 11/13/2020 [facility] 20 mg 08/10/2020 12:00:00 AM EDT capsule,delayed release (DR/EC) 30 TAKE ONE CAPSULE BY MOUTH EVERY OTHER DAY TO ONCE DAILY TAKE ONE CAPSULE BY MOUTH EVERY OTHER DAY TO ONCE DAILY SOLD: 08/13/2020 [facility] 20 mg 08/10/2020 12:00:00 AM EDT capsule,delayed release (DR/EC) 30 TAKE ONE CAPSULE BY MOUTH EVERY OTHER DAY TO ONCE DAILY TAKE ONE CAPSULE BY MOUTH EVERY OTHER DAY TO ONCE DAILY SOLD: 01/14/2021 [facility] 150 mcg 07/24/2020 12:00:00 AM EDT tablet 30 TAKE ONE TABLET BY MOUTH EVERY DAY TAKE ONE TABLET BY MOUTH EVERY DAY SOLD: 08/31/2020 [facility] 150 mcg 07/24/2020 12:00:00 AM EDT tablet 30 TAKE ONE TABLET BY MOUTH EVERY DAY TAKE ONE TABLET BY MOUTH EVERY DAY SOLD: 10/02/2020 [facility] 150 mcg 07/24/2020 12:00:00 AM EDT tablet 30 TAKE ONE TABLET BY MOUTH EVERY DAY TAKE ONE TABLET BY MOUTH EVERY DAY SOLD: 10/31/2020 [facility] 1 mg 07/08/2020 12:00:00 AM EDT tablet 120 TAKE ONE TABLET BY MOUTH FOUR TIMES A DAY TAKE ONE TABLET BY MOUTH FOUR TIMES A DAY SOLD: 08/13/2020 [facility] atorvastatin 20 MG Oral Tablet ATORVASTATIN CALCIUM 07/05/2020 1 2:00:00 AM EDT tablet 30 TAKE ONE TABLET BY MOUTH EVERY D AY TAKE ONE TABLET BY MOUTH EVERY DAY SOLD: 12/08/2020 [facility] atorvastatin 20 MG Oral Tablet ATORVASTATIN CALCIUM 07/05/2020 1 2:00:00 AM EDT tablet 30 TAKE ONE TABLET BY MOUTH EVERY D AY TAKE ONE TABLET BY MOUTH EVERY DAY SOLD: 09/06/2020 [facility] atorvastatin 20 MG Oral Tablet ATORVASTATIN CALCIUM 07/05/2020 1 2:00:00 AM EDT tablet 30 TAKE ONE TABLET BY MOUTH EVERY D AY TAKE ONE TABLET BY MOUTH EVERY DAY SOLD: 01/07/2021 [facility] atorvastatin 20 MG Oral Tablet ATORVASTATIN CALCIUM 07/05/2020 1 2:00:00 AM EDT tablet 30 TAKE ONE TABLET BY MOUTH EVERY D AY TAKE ONE TABLET BY MOUTH EVERY DAY SOLD: 10/07/2020 [facility] atorvastatin 20 MG Oral Tablet ATORVASTATIN CALCIUM 07/05/2020 1 2:00:00 AM EDT tablet 30 TAKE ONE TABLET BY MOUTH EVERY D AY TAKE ONE TABLET BY MOUTH EVERY DAY SOLD: 11/06/2020 [facility] 0.4 mg 06/21/2020 12:00:00 AM EDT capsule 30 TAKE ONE CAPSULE BY MOUTH EVERY DAY TAKE ONE CAPSULE BY MOUTH EVERY DAY SOLD: 09/21/2020 [facility] 0.4 mg 06/21/2020 12:00:00 AM EDT capsule 30 TAKE ONE CAPSULE BY MOUTH EVERY DAY TAKE ONE CAPSULE BY MOUTH EVERY DAY SOLD: 11/19/2020 [facility] 0.4 mg 06/21/2020 12:00:00 AM EDT capsule 30 TAKE ONE CAPSULE BY MOUTH EVERY DAY TAKE ONE CAPSULE BY MOUTH EVERY DAY SOLD: 08/23/2020 [facility] 0.4 mg 06/21/2020 12:00:00 AM EDT capsule 30 TAKE ONE CAPSULE BY MOUTH EVERY DAY TAKE ONE CAPSULE BY MOUTH EVERY DAY SOLD: 10/22/2020 [facility] Escitalopram 10 MG Oral Tablet ESCITALOPRAM OXALATE 06/09/2020 1 2:00:00 AM EDT tablet 30 TAKE ONE TABLET BY MOUTH EVERY D AY TAKE ONE TABLET BY MOUTH EVERY DAY SOLD: 08/13/2020 [facility] 28 mg 06/09/2020 12:00:00 AM EDT capsule,sprinkle,ER 24h r 30 TAKE ONE CAPSULE BY MOUTH EVERY DAY TAKE ONE CAPSULE BY MOUTH EVERY DAY SOLD: 06/01/2021 [facility] 2 mg 06/09/2020 12:00:00 AM EDT tablet 90 TAKE ONE TABLET BY MOUTH THREE TIMES A DAY TAKE ONE TABLET BY MOUTH THREE TIMES A DAY SOLD: 08/13/2020 [facility] 28 mg 06/09/2020 12:00:00 AM EDT capsule,sprinkle,ER 24h r 30 TAKE ONE CAPSULE BY MOUTH EVERY DAY TAKE ONE CAPSULE BY MOUTH EVERY DAY SOLD: 08/13/2020 [facility] Escitalopram 10 MG Oral Tablet ESCITALOPRAM OXALATE 06/09/2020 1 2:00:00 AM EDT tablet 30 TAKE ONE TABLET BY MOUTH EVERY D AY TAKE ONE TABLET BY MOUTH EVERY DAY SOLD: 09/11/2020 [facility] 28 mg 06/09/2020 12:00:00 AM EDT capsule,sprinkle,ER 24h r 30 TAKE ONE CAPSULE BY MOUTH EVERY DAY TAKE ONE CAPSULE BY MOUTH EVERY DAY SOLD: 05/01/2021 [facility] Escitalopram 10 MG Oral Tablet ESCITALOPRAM OXALATE 06/09/2020 1 2:00:00 AM EDT tablet 30 TAKE ONE TABLET BY MOUTH EVERY D AY TAKE ONE TABLET BY MOUTH EVERY DAY SOLD: 10/09/2020 [facility] Insurance Providers Payer name Policy type / Coverage type Policy ID Covered libertarian ID Covered libertarian's relationship to coelho Policy Coelho Plan Information [facility] [id number] 00 [id number] Self [id number] [facility] [place] HDHP [id number] Self [place] HDHP MEDICARE [id number] SP [id number] Medicare Natl Govt Servic Medicare Primary [id number] Self Medicare Natl Govt Servic Medicare Primary [id number] Self [id number] Medicare Natl Govt Servic Medicare Primary [id number] Self [id number] MEDICARE [id number] SP [id number] A Medicare Natl Govt Servic Medicare Primary [id number] Self [id number] Medicare Natl Govt Servic Medicare Primary [id number] Self [id number] Medicare Natl Govt Servic Medicare Primary [id number] Self [id number] [facility] Opt Medigap Part B Plan N [id number] Self Plan N [facility] Opt Medigap Part B [id number] Self [id number] [facility] Opt Medigap Part B [id number] Self [id number] [facility] Opt Medigap Part B [id number] Self [id number] [facility] Opt Medigap Part B [id number] Self [id number] [facility] Opt Medigap Part B [id number] Self [id number] [facility] OPTIONS [id number] SP [id number] [facility] Trad/MX Medigap Part B [id number] Medicare Natl Gov't Servi Medicare Primary [id number] Self [id number] [facility] Trad/MX Commercial [id number] MEDICARE [id number] SP [id number] A [facility] PHY [id number] SP [id number] [place] PPO 302/307 [id number] SP [id number] VALUE OPTIONS (MVP) [id number] SP [id number] [facility] PHY [id number] SP [id number] [place] PPO 302/307 [id number] [employer] BCBS P [id number] P [id number] [employer] P [id number] P VYS [id number] P UNAVAILABLE UNAVAILA BLE Problems, Conditions, and Diagnoses Code Display Name Description Problem Type Effective Dates Data Source(s) E78.2 497154829 Mixed hyperlipidemia Problem 07/13/2021 12:0 0:00 AM EDT eCW1 (Counts Include [facility]) I10 [id number] Essential hypertension Problem 07/13/2021 12 :00:00 AM EDT eCW1 (Counts Include [facility]) Surgeries/Procedures Procedure Description Date Indications Data Source(s) OFFICE OUTPATIENT VISIT 15 MINUTES 09/12/2021 12:00:00 AM EDT [facility] FALLS RISK ASSESSMENT DOCUMENTED 09/04/2020 12:00:00 A M EDT [facility] ([facility]) Diabetic Retinal Eye Exam 08/29/2020 12:00:00 AM EDT [facility] ([facility]) Results ID Date Data Source [id number] 10/24/2020 07:34:00 AM EST [facility] ([facility]) Name Value Range Interpretation Code Description Data Dory rce(s) Supporting Document(s) Thyroxine (T4) free [Mass/volume] in Serum or Plasma 0.97 ng/dL 0.76- 1.46 [facility] ([facility]) ID Date Data Source [id number] 10/24/2020 07:34:00 AM EST [facility] ([facility]) Name Value Range Interpretation Code Description Data Dory rce(s) Supporting Document(s) Thyrotropin [Units/volume] in Serum or Plasma by Detec tion limit <= 0.05 mIU/L 4.95 uIU/mL 0.36-3.74 [facility] ([facility] ) ID Date Data Source [id number] 10/24/2020 07:34:00 AM EST [facility] ([facility]) Name Value Range Interpretation Code Description Data Dory rce(s) Supporting Document(s) Triglyceride [Mass/volume] in Serum or Plasma 278 mg/dL 30-150 [facility] ([facility]) Cholesterol [Mass/volume] in Serum or Plasma 139 mg/dL 131-200 [facility] ([facility]) Cholesterol in HDL [Mass/volume] in Serum or Plasma 36 mg/dL 35-60 [facility] ([facility]) Cholesterol in LDL [Mass/volume] in Serum or Plasma by calcu lation 47 CALC 50-159 [facility] ([facility]) ID Date Data Source [id number] 10/24/2020 07:34:00 AM EST [facility] ([facility]) Name Value Range Interpretation Code Description Data Dory rce(s) Supporting Document(s) Glucose [Mass/volume] in Serum or Plasma 94 mg/dL 74-99 [facility] ([facility]) 100-125 mg/dL PRE-DIABETES/FASTING >126 mg/dL DIABETES/FASTING Urea nitrogen [Mass/volume] in Serum or Plasma 22 mg/dL 7-18 [facility] ([facility]) Creatinine 1.1 mg/dL 0.6-1.3 [facility] ([facility]) Potassium [Moles/volume] in Serum or Plasma 4.4 meq/L 3.5-5.1 [facility] ([facility]) Sodium [Moles/volume] in Serum or Plasma 144 meq/L 136-145 [facility] ([facility]) Carbon dioxide, total [Moles/volume] in Serum or Plasma 30 meq/L 21 -32 [facility] ([facility]) Calcium [Mass/volume] in Serum or Plasma 8.5 mg/dL 8.5-10.1 [facility] ([facility]) Chloride [Moles/volume] in Serum or Plasma 105 meq/L 98-107 [facility] ([facility]) Alkaline phosphatase isoenzyme [Units/volume] in Serum or Pl asma 85 mg/dL 46-116 [facility] Total Bilirubin 0.7 mg/dL 0.2-1.0 [facility] ([facility]) Aspartate aminotransferase [Enzymatic activity/volume] in Serum or Plasma 21 U/L 15-37 [facility] ([facility] ) Albumin [Mass/volume] in Serum or Plasma 3.6 g/dL 3.4-5.0 [facility] ([facility]) Alanine aminotransferase [Enzymatic activity/volume] in Seru m or Plasma 28 U/L 12-78 [facility] ([facility]) Proteinase 3 Ab [Units/volume] in Serum 6.5 g/dL 6.4-8.2 [facility] ([facility]) A/G Ratio 1.24 CALC 1.00-1.90 [facility]) Glomerular filtration rate/1.73 sq M pre dicted among non-blacks [Volume Rate/Area] in Serum or Plasma by Creatinine-based formula (MDRD) Laboratory test result [facility] ([facility] ) Glomerular filtration rate/1.73 sq M pre dicted among blacks [Volume Rate/Area] in Serum or Plasma by Creatinine-based formula (MDRD) Laboratory test result [facility] ([facility]) <content>CHRONIC KIDNEY DISEASE STAGING PER NKF</content>
<content></content>
<content>STAGE I & II GFR >= 60 NORMAL TO MILDLY DECREASED</content>
<content>STAGE III GFR 30-59 MODERATELY DECREASED</content>
<content>STAGE IV GFR 15-29 SEVERELY DECREASED</content>
<content>STAGE V GFR <15 VERY LITTLE GFR LEFT</content>
<content>ESRD GFR <15 ON PHARMACY BENEFIT MANAGER</content>
<content></content> ID Date Data Source [id number] 10/24/2020 07:34:00 AM EST [facility] ([facility]) Name Value Range Interpretation Code Description Data Dory rce(s) Supporting Document(s) Leukocytes [#/volume] in Blood by Automated count 7.1 x10*3/UL 4.1-10 .9 [facility] ([facility]) Hemoglobin [Mass/volume] in Blood 14.9 g/dL 12.0-18.0 [facility] ([facility]) Hematocrit [Volume Fraction] of Blood by Automated count 43.2 % 3 7.0-51.0 [facility] Erythrocytes [#/volume] in Blood by Automated count 4.99 x10*6/UL 4.2 0-6.30 [facility] ([facility]) MCH 29.9 pg 26.0-32.0 [facility]) MCV 86.5 fL 80.0-97.0 [facility] MCHC 34.5 g/dL 31.0-38.0 [facility] Platelets [#/volume] in Blood by Automated count 250 x10*3/UL 140-440 [facility] ([facility]) Erythrocyte distribution width [Ratio] by Automated count 12.7 % 11.6-13.7 [facility] MPV 8.6 FL 7.8-11.0 [facility] Lymph % 21.2 % 10.0-58.5 [facility] Lymph # 1.5 x10*3/UL 0.6-4.1 [facility] ([facility]) Neut % 73.0 % 37.0-92.0 [facility] Mid % 5.8 % 1.7-9.3 [facility] Mid # 0.4 x10*3/UL 0.1-0.6 [facility] ([facility]) Neut # 5.2 x10*3/UL 2.0-7.8 [facility] ([facility]) Procedure Social History No Information Vital Signs ID Date Data Source UNK Name Value Range Interpretation Code Description Data Source(s) Respiratory rate 15 /min 15 /min [facility] ( [facility]) Oxygen saturation in Arterial blood by Pulse oximetry 97 % 97 % [facility] ([facility] Systolic blood pressure 149 mm[Hg] 149 mm[Hg] M EDENT ([facility] Body temperature 97.1 [degF] 97.1 [degF] [facility] Body weight 187.00 [lb_av] 187.00 [lb_av] [facility] ([facility] Body height 71 [in_i] 71 [in_i] [facility] ([facility] 5'11" Diastolic blood pressure 83 mm[Hg] 83 mm[Hg] [facility] Body mass index (BMI) [Ratio] 26.1 kg/m2 26.1 k g/m2 [facility] ([facility] Heart rate 84 /min 84 /min [facility] ([facility] Body weight 199 [lb_av] 199 [lb_av] eCW1 ([facility]) Body weight 90.26 kg 90.26 kg eCW1 ([facility]) Body height 72.25 [in_i] 72.25 [in_i] eCW1 ([facility]) Body mass index (BMI) [Ratio] 26.8 kg/m2 26.8 k g/m2 eCW1 (Counts Include [facility] At [facility]) Heart rate 75 /min 75 /min eCW1 ([facility]) Respiratory rate 18 /min 18 /min eCW1 ([facility]) Body temperature 97.8 [degF] 97.8 [degF] eCW1 ( Counts Include [facility]) Systolic blood pressure 150 mm[Hg] 150 mm[Hg] e CW1 (Counts Include [facility]) Diastolic blood pressure 89 mm[Hg] 89 mm[Hg] eCW1 (Counts Include [facility] At [facility]) Diastolic blood pressure 70 mm[Hg] 70 mm[Hg] [facility] ([facility]) Heart rate 75 /min 75 /min [facility] ([facility]) Body height 71.75 [in_i] 71.75 [in_i] [facility] ([facility]) 5'11.75" Body weight 201.00 [lb_av] 201.00 [lb_av] MED[facility] T ([facility]) Oxygen saturation in Arterial blood by Pulse oximetry 98 % 98 % [facility] ([facility]) RM Air Systolic blood pressure 120 mm[Hg] 120 mm[Hg] M EDENT ([facility]) Body mass index (BMI) [Ratio] 27.4 kg/m2 27.4 k g/m2 [facility] ([facility]) Intraocular pressure Right eye 10 mm[Hg] 10 mm [Hg] [facility] ([facility] ) Tp 11:27 Am Intraocular pressure Left eye 9 mm[Hg] 9 mm[H g] [facility] ([facility]) Tp 11:27 Am
--- OUTSIDE RECORDS SUMMARY | 2021-10-11 11:21 | CCD | Continuity of Care Document ---
Author Author [facility] Organization Unknown Address [address] [place] [address] [place] [address] Phone [phone] Care Team Providers Care Mechanical Maintenance Technician Name Role Phone Georgia Vega [facility] [phone] Problems Description No Information Available Social History [...] Available Procedures Date Code Description Status 09/12/2021 18578 Office/Outpatient Established Lo w MDM 20-29 Min [...]
--- OUTSIDE RECORDS SUMMARY | 2021-10-11 11:21 | CCD | Continuity of Care Document ---
Author Author [facility] [place] Organization Unknown Address [address] [place] [address] [place] [address] Phone [phone] Care Team Providers Care Hide Buyer Name Role Phone [facility] [phone] Problems Description No Information Available Social History [...] Available Procedures Date Code Description Status 09/12/2021 56612 Office/Outpatient Established Lo w MDM 20-29 Min [...]
--- OUTSIDE RECORDS SUMMARY | 2021-10-11 11:21 | CCD | Continuity of Care Document ---
Author Author Diego GARCIA DC Organization Unknown Address [address] [place] [address] [place] [address] Phone [phone] Care Team Providers Care Mold Cleaner Name Role Phone [facility] [phone] Problems Description No Information Available Social History [...] Available Procedures Date Code Description Status 09/12/2021 57399 Office/Outpatient Established Lo w MDM 20-29 Min [...]
--- OUTSIDE RECORDS SUMMARY | 2021-10-11 11:21 | CCD | Continuity of Care Document ---
Author Author [facility] [place] Organization Unknown Address [address] [place] [address] [place] [address] Phone [phone] Care Team Providers Care Sales Assistant Displays Name Role Phone [facility] [phone] Problems Description No Information Available Social History [...] Available Procedures Date Code Description Status 09/12/2021 10937 Office/Outpatient Established Lo w MDM 20-29 Min [...]
--- OUTSIDE RECORDS SUMMARY | 2021-10-11 11:21 | CCD ---
Author Author [facility] Organization [facility] Address Unknown Phone Unavailable Care Team Providers Care Social Media Executive Name Role Phone Cyndi Vega Unavailable PROBLEMS Type Condition ICD9-CM Code [id number] Code Onset Dates Condition S tatus W/U Status Risk SNOMED Code Notes Problem Essential hypertension I10 Active confirmed 62624248 Problem Mixed hyperlipidemia E78.2 Active confirmed 795591221 Problem Pure hyperglyceridemia 272.1 Active confirmed 260902685 Problem Hypertension, benign 401.1 Active confirmed 98066972 Problem Mixed hyperlipidemia 272.2 Active confirmed 711061183 ALLERGIES Allergen (clinical drug ingredient) Drug/Non Drug Allergy do cumented on EMR Reaction Allergy Type Onset Date Status seasonal Unknown Non Drug Allergy Active red wine flushed Non Drug Allergy Active ENCOUNTERS from 1950 to 2021-07-16 Encounter Location Date Provider Diagnosis [address] [phone] [place] [address] May, Cyndi Vega Essential hypertensi on I10 and Mixed hyperlipidemia E78.2 IMMUNIZATIONS No Information SOCIAL HISTORY Sex Assigned At : Social History Observation Description Sex Assigned At Unknown REASON FOR REFERRAL No Information VITAL SIGNS Weight 199 lbs May, Weight-kg 90.26 kg May, Height 72.25 in May, BMI 26.8 kg/m2 May, Heart Rate 75 /min May, Respiratory Rate 18 /min May, Temperature 97.8 degrees Fahrenheit May, Oximetry 100 May, Blood pressure systolic 150 mm Hg May, Blood pressure diastolic 89 mm Hg May, MEDICATIONS Medication SIG (Take, Route, Frequency, Duration) Notes Start Da te End Date Status Adderall 30 mg 2 tablets Orally Once a day for 30 day(s) Active Flomax 0.4 MG 1 capsule 30 minutes after t he same meal each day orally Once a day for 90 day(s) Aug, Active Wellbutrin SR 300 MG (Samuel) 1 tablet Orally once daily for 90 day(s) Active Aspir-81 81 MG 1 tablet Orally Once a day for 30 day(s) May, Active Levoxyl 100 MCG 1 tablet every morning on an empty stomach orally Once a day for 90 day(s) Aug, Active Chlorthalidone 25 25 mg 1 tab(s) oral daily for 90 day(s) Jan, Active Tricor 145 MG 1 tablet Orally Once a day for 90 day(s) Aug, Active Vitamin D 1000 UNIT 1 capsule Orally Once a day for 90 day(s) Jan, Active Multivitamins 10 mg 1 tab Orally Once a day for 90 day(s) Active Abilify 10 mg 1 tablet Orally Once a day for 90 day(s) Active [place]-3 Fish Oil 1000 mg 1 tab(s) Orally Once a day for 30 day(s ) March, Active Pravastatin 10 10mg 1 tab(s) oral daily for 90 day(s) 2010 Active PROCEDURES No Information RESULTS No Results REASON FOR VISIT to [facility] MEDICAL (GENERAL) HISTORY Type Description Date Medical History hypertension Medical History hypertriglyceridemia Medical History hypercholesterolemia Medical History BPH Medical History Hypothyroidism Medical History depression Medical History bipolar Surgical History tonsillectomy 1955 Goals Section No Information Health Concerns No Information MEDICAL EQUIPMENT No Information MENTAL STATUS No Information FUNCTIONAL STATUS No Information ASSESSMENTS Encounter Date Diagnosis Assessment Notes Treatment Notes Treatm ent Clinical Notes May, Essential hypertension (ICD-10 - I10) May, Mixed hyperlipidemia (ICD-10 - E78.2) PLAN OF TREATMENT Future Test Test Name Order Date Comprehensive Metabolic Profile (CMP) [id number] CBC with Differential [id number] LIPID PANEL (CARDIAC RISK) [id number] TSH [id number] VITAMIN D 25-HYDROXY [id number] HEMOGLOBIN A1c [id number] Next Appt Details 3 Months Reason: Provider Name:Cyndi Vega, 2021-07 10:30:00 AM, [address] [facility], , [place], [address], Insurance Providers Payer Name Payer Address Payer Phone Insured Name Patient Relati onship to Insured Coverage Start Date Coverage End Date SELF PAY ONLY - SP1 ROBBIE ESCAMILLA self
[2021-10-11] MEDS ORDERED: OMEP-218 (11:33)
[2021-10-11] MEDS ORDERED: LOSA50TA88 (11:33)
[2021-10-11] MEDS ORDERED: MEMA28CA12 (11:33)
--- OUTSIDE RECORDS SUMMARY | 2021-10-11 16:00 | CCD ---
Author Author [facility] Organization [facility] Address Unknown Phone Unavailable Care Team Providers Care Rn Discharge Name Role Phone Rick Bolden Unavailable Unavailable Yuan, Azra ENCINAS Unavailable Unavailable Yuan, Azra ENCINAS Unavailable Unavailable Yuan, Azra ENCINAS Unavailable Unavailable YuanRick Unavailable Unavailable Yuan, Azra ENCINAS Unavailable Unavailable Yuan, Azra ENCINAS Unavailable Unavailable Yuan, Azra ENCINAS Unavailable Unavailable Yuan, Azra ENCINAS Unavailable Unavailable Yuan, Azra ENCINAS Unavailable Unavailable YunaRick Unavailable Unavailable YuanRick Unavailable Unavailable YuanRick Unavailable [...] Unavailable Unavailable Azeem, Katie DO Unavailable Unavailable Zaeem, Katie DO Unavailable Unavailable Aezem, Katie DO Unavailable Unavailable Azeem, Katie DO [...] is protected by Article 27-F of the [facility] Public Health law. If you continue you may have access to information: Regarding HIV / AIDS; Provided by facilities licensed or operated by the [facility] Office of Mental Health; or Provided by the [facility] Office for People With Developmental Disabilities. If such information is present, then the following [facility] mandated warning applies: This information has [...] NEENA solis 09/12/2021 12:10:00 PM EDT [facility] ([facility] Outpatient [address] [facility] [address] 06/21/2021 12:00:00 AM EDT eCW1 ([facility]) Outpatient Attender: Katie Parekh 10/24 07:00:00 AM EST [facility] ([facility] ) Outpatient Attender: Azra Bolden MD Main office - [place] 09/04/2020 10:15:00 AM EDT [facility] ([facility]) Immunizations Vaccine Date Status Description Data Source(s) COVID-19 VACC, MRNA(PFIZER)/PF 08/21/2021 12:00:00 AM EDT completed [facility] COVID-19 VACCINE Pfizer 08/21/2021 12:00:00 AM EDT completed [facility] Vaccine Series Complete: YESThis Data wa s Submitted to [facility] [employer]. COVID-19 VACCINE Pfizer 02/14/2021 12:00:00 AM EDT completed [facility] Vaccine Series Complete: YESThis Data wa s Submitted to [facility] [employer]. COVID-19 VACCINE Pfizer 01/24/2021 12:00:00 AM EST completed [facility] Vaccine Series Complete: NOThis Data was Submitted to [facility] [employer]. 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[employer]ho Plan Information [employer] [id number] Self [id number] [place] [employer] [place] [address] [place] MEDICARE [id number] SP [id number] Medicare Natl Govt Servic Medicare Primary [id number] Self Medicare Natl Govt Servic Medicare Primary [id number] Self [id number] Medicare Natl Govt Servic Medicare Primary [id number] Self [id number] MEDICARE [id number] SP [id number] A Medicare Natl Govt Servic Medicare Primary [id number] Self [id number] Medicare Natl Govt Servic Medicare Primary [id number] Self [id number] Medicare Natl Govt Servic Medicare Primary [id number] Self [id number] [facility] Opt Medigap Part B Plan N [id number] Self Plan N [facility] Opt Medigap Part B [id number] Self [id number] 11 [facility] Opt Medigap Part B [id number] Self [id number] 11 [facility] Opt Medigap Part B [id number] Self [id number] 11 [facility] Healthcare Opt Medigap Part B [id number] Self [id number] 11 [facility] Opt Medigap Part B [id number] Self [id number] [facility] OPTIONS [id number] SP [id number] [facility] Trad/MX Medigap Part B [id number] Medicare Natl Gov't Servi Medicare Primary [id number] Self [id number] [facility] Trad/MX Commercial [id number] MEDICARE [id number] SP [id number] A [facility] PHY [id number] SP [id number] [place] PPO 302/307 [id number] SP [id number] VALUE OPTIONS (MVP) [id number] SP [id number] [facility] PHY [id number] SP [id number] [place] PPO 302/307 [id number] [id number] [employer]CELLUS BCBS P [id number] P [id number] [employer] BCBS P [id number] P [id number] [id number] P UNAVAILABLE UNAVAILA BLE Problems, Conditions, and Diagnoses Code Display Name Description Problem Type Effective Dates Data Source(s) E78.2 [id number] Mixed hyperlipidemia Problem 07/13/2021 12:0 0:00 AM EDT eCW1 ([facility]) I10 25992609 Essential hypertension Problem 07/13/2021 12 :00:00 AM EDT eCW1 ([facility]) Surgeries/Procedures Procedure Description Date Indications Data Source(s) OFFICE OUTPATIENT VISIT 15 MINUTES 09/12/2021 12:00:00 AM EDT [facility] FALLS RISK ASSESSMENT DOCUMENTED 09/04/2020 12:00:00 A M EDT [facility] ([facility]) Diabetic Retinal Eye Exam 08/29/2020 12:00:00 AM EDT [facility] ([facility]) Results ID Date Data Source [id number] 10/24/2020 07:34:00 AM EST [facility] ([facility]) Name Value Range Interpretation Code Description Data Dory rce(s) Supporting Document(s) Thyroxine (T4) free [Mass/volume] in Serum or Plasma 0.97 ng/dL 0.76- 1.46 [facility] ([facility]) ID Date Data Source [id number] 10/24/2020 07:34:00 AM EST [facility] ([facility]) Name Value Range Interpretation Code Description Data Dory rce(s) Supporting Document(s) Thyrotropin [Units/volume] in Serum or Plasma by Detec tion limit <= 0.05 mIU/L 4.95 uIU/mL 0.36-3.74 [facility] ([facility] ) ID Date Data Source [id number] 10/24/2020 07:34:00 AM EST [facility] ([facility]) Name Value Range Interpretation Code Description Data Dory rce(s) Supporting Document(s) Triglyceride [Mass/volume] in Serum or Plasma 278 mg/dL 30-150 [facility] ([facility]) Cholesterol [Mass/volume] in Serum or Plasma 139 mg/dL 131-200 [facility] ([facility]) Cholesterol in HDL [Mass/volume] in Serum or Plasma 36 mg/dL 35-60 [facility] ([facility]) Cholesterol in LDL [Mass/volume] in Serum or Plasma by calcu lation 47 CALC 50-159 [facility] ([facility]) ID Date Data Source [id number] 10/24/2020 07:34:00 AM EST [facility] ([facility]) Name Value Range Interpretation Code Description Data Dory rce(s) Supporting Document(s) Glucose [Mass/volume] in Serum or Plasma 94 mg/dL 74-99 [facility] ([facility]) 100-125 mg/dL PRE-DIABETES/FASTING >126 mg/dL DIABETES/FASTING Urea nitrogen [Mass/volume] in Serum or Plasma 22 mg/dL 7-18 [facility] ([facility]) Creatinine 1.1 mg/dL 0.6-1.3 [facility] ([facility] Potassium [Moles/volume] in Serum or Plasma 4.4 meq/L 3.5-5.1 [facility] ([facility]) Sodium [Moles/volume] in Serum or Plasma 144 meq/L 136-145 [facility] ([facility]) Carbon dioxide, total [Moles/volume] in Serum or Plasma 30 meq/L 21 -32 [facility] ([facility]) Calcium [Mass/volume] in Serum or Plasma 8.5 mg/dL 8.5-10.1 [facility] ([facility]) Chloride [Moles/volume] in Serum or Plasma 105 meq/L 98-107 [facility] ([facility]) Alkaline phosphatase isoenzyme [Units/volume] in Serum or Pl asma 85 mg/dL 46-116 [facility] Total Bilirubin 0.7 mg/dL 0.2-1.0 [facility] ([facility]) Aspartate aminotransferase [Enzymatic activity/volume] in Serum or Plasma 21 U/L 15-37 [facility] ([facility] ) Albumin [Mass/volume] in Serum or Plasma 3.6 g/dL 3.4-5.0 [facility] ([facility]) Alanine aminotransferase [Enzymatic activity/volume] in Seru m or Plasma 28 U/L 12-78 [facility] ([facility]) Proteinase 3 Ab [Units/volume] in Serum 6.5 g/dL 6.4-8.2 [facility] ([facility]) A/G Ratio 1.24 CALC 1.00-1.90 [facility]) Glomerular filtration rate/1.73 sq M pre dicted among non-blacks [Volume Rate/Area] in Serum or Plasma by Creatinine-based formula (MDRD) Laboratory test result [facility] ([facility] ) Glomerular filtration rate/1.73 sq M pre dicted among blacks [Volume Rate/Area] in Serum or Plasma by Creatinine-based formula (MDRD) Laboratory test result [facility] ([facility]) <content>CHRONIC KIDNEY DISEASE STAGING PER NKF</content>
<content></content>
<content>STAGE I & II GFR >= 60 NORMAL TO MILDLY DECREASED</content>
<content>STAGE III GFR 30-59 MODERATELY DECREASED</content>
<content>STAGE IV GFR 15-29 SEVERELY DECREASED</content>
<content>STAGE V GFR <15 VERY LITTLE GFR LEFT</content>
<content>ESRD GFR <15 ON REGISTERED RADIOLOGIC TECHNOLOGIST</content>
<content></content> ID Date Data Source [id number] 10/24/2020 07:34:00 AM EST [facility] ([facility]) Name Value Range Interpretation Code Description Data Dory rce(s) Supporting Document(s) Leukocytes [#/volume] in Blood by Automated count 7.1 x10*3/UL 4.1-10 .9 [facility] ([facility]) Hemoglobin [Mass/volume] in Blood 14.9 g/dL 12.0-18.0 [facility] ([facility]) Hematocrit [Volume Fraction] of Blood by Automated count 43.2 % 3 7.0-51.0 [facility] ([facility]) Erythrocytes [#/volume] in Blood by Automated count 4.99 x10*6/UL 4.2 0-6.30 [facility] ([facility]) MCH 29.9 pg 26.0-32.0 [facility]) MCV 86.5 fL 80.0-97.0 [facility] [facility] MCHC 34.5 g/dL 31.0-38.0 [facility] Platelets [#/volume] in Blood by Automated count 250 x10*3/UL 140-440 [facility] ([facility]) Erythrocyte distribution width [Ratio] by Automated count 12.7 % 11.6-13.7 [facility] ([facility]) MPV 8.6 FL 7.8-11.0 [facility]) Lymph % 21.2 % 10.0-58.5 [facility] Lymph # 1.5 x10*3/UL 0.6-4.1 [facility] ([facility]) Neut % 73.0 % 37.0-92.0 [facility] Mid % 5.8 % 1.7-9.3 [facility]) Mid # 0.4 x10*3/UL 0.1-0.6 [facility] ([facility]) Neut # 5.2 x10*3/UL 2.0-7.8 [facility] ([facility]) Procedure Social History No Information Vital Signs ID Date Data Source UNK Name Value Range Interpretation Code Description Data Source(s) Systolic blood pressure 149 mm[Hg] 149 mm[Hg] M EDENT ([facility], [facility]) Diastolic blood pressure 83 mm[Hg] 83 mm[Hg] [facility] ([facility], [facility]) Heart rate 84 /min 84 /min [facility] ([facility], [facility]) Respiratory rate 15 /min 15 /min [facility] ( [facility], [facility]) Oxygen saturation in Arterial blood by Pulse oximetry 97 % 97 % [facility] ([facility], [facility]) Body temperature 97.1 [degF] 97.1 [degF] [facility] ([facility], [facility]) Body weight 187.00 [lb_av] 187.00 [lb_av] MEDEN T ([facility], [facility]) Body height 71 [in_i] 71 [in_i] [facility] ([facility], [facility]) 5'11" Body mass index (BMI) [Ratio] 26.1 kg/m2 26.1 k g/m2 [facility] ([facility], [facility]) Body weight 199 [lb_av] 199 [lb_av] eCW1 ([facility]) Body weight 90.26 kg 90.26 kg eCW1 ([facility]) Body height 72.25 [in_i] 72.25 [in_i] eCW1 ([facility]) Body mass index (BMI) [Ratio] 26.8 kg/m2 26.8 k g/m2 eCW1 ([facility]) Heart rate 75 /min 75 /min eCW1 ([facility]) Respiratory rate 18 /min 18 /min eCW1 ([facility]) Body temperature 97.8 [degF] 97.8 [degF] eCW1 ( [facility]) Systolic blood pressure 150 mm[Hg] 150 mm[Hg] e CW1 ([facility]) Diastolic blood pressure 89 mm[Hg] 89 mm[Hg] eCW1 ([facility]) Diastolic blood pressure 70 mm[Hg] 70 mm[Hg] [facility] ([facility]) Heart rate 75 /min 75 /min [facility] ([facility]) Body height 71.75 [in_i] 71.75 [in_i] [facility] ([facility]) 5'11.75" Body weight 201.00 [lb_av] 201.00 [lb_av] MEDEN T ([facility]) Oxygen saturation in Arterial blood by Pulse oximetry 98 % 98 % [facility] ([facility]) RM Air Systolic blood pressure 120 mm[Hg] 120 mm[Hg] M EDENT ([facility]) Body mass index (BMI) [Ratio] 27.4 kg/m2 27.4 k g/m2 [facility] ([facility]) Intraocular pressure Right eye 10 mm[Hg] 10 mm [Hg] [facility] ([facility] ) Tp 11:27 Am Intraocular pressure Left eye 9 mm[Hg] 9 mm[H g] [facility] ([facility]) Tp 11:27 Am
== END 2021-10-11 18:32 | disposition left against medical advice (07) ==
LOC: M ED 11:10
DX: Z53.21 Procedure and treatment not carried out due to patient leaving prior to being seen by health care provider (principal)